=== PATIENT | female | born 1945 | race Caucasian/White ===

== ENCOUNTER 2021-07-08 12:23 | Inpatient (IN) | payer MEDICARE, OTHER, MEDICAID ==
--- NOTE | 2021-07-08 12:41 | EDM.PDOC ---
ED HPI GENERAL MEDICAL PROBLEM - General Chief Complaint: Abdominal Pain Stated Complaint: POSSIBLE GI BLED Time Seen by Provider: 07/08/21 12:23 Source of Information: Reports: Patient, EMS, Care Home Records History Limitations: Reports: Altered Mental Status, Other ( No updated daily report) - History of Present Illness INITIAL COMMENTS - FREE TEXT/NARRATIVE: Mackenzie, 75-year-old female, presents by [place] ambulance from the nursing facility with report provided by ambulance only as there was no provider contact made. This morning while changing her ostomy bag they noted tarry black stool suspicious for GI bleed. Although there is no documentation in the paperwork sent from the nursing facility nor contact from the [facility] provider transportation was authorized as well as a bed hold denial obtained from her son Rg who is the power of ip attorney. She was hospitalized at [facility] in [place] in May for what appears to be urosepsis issues and was transferred to [facility] in [place] on 12 June. She has been seen and had lab work done since then by [facility] provider Fatmata Fitzgerald through the clinic system. She presents today somewhat lethargic able to answer yes and no to questions but has a very weak voice and very limited mobility. She states she has some abdominal discomfort which is lower abdomen pelvis and otherwise is somewhat vague to any other complaint. Majority of history is obtained but is very limited from the nursing record. She is never been seen in our system and all pertinent information is obtained through [facility] chart and or the limitations of the alf record. Onset: Today, Unknown/Unsure Duration: Hour(s):, Constant Location: Reports: Abdomen Quality: Reports: Pressure, Sharp Severity: Severe Improves with: Reports: None Context: Reports: Other Associated Symptoms: Reports: No Other Symptoms Abdomen Pain Score (Numeric/FACES): 4 - Related Data Allergies Allergy/AdvReac Type Severity Reaction Status Date / Time bupivacaine [From Marcaine] Allergy Other Verified 07/08/21 13:09 celecoxib [From Celebrex] Allergy Other Verified 07/08/21 13:01 ciprofloxacin Allergy Other Verified 07/08/21 13:01 clindamycin Allergy Other Verified 07/08/21 13:02 codeine Allergy Other Verified 07/08/21 13:07 dicyclomine Allergy Other Verified 07/08/21 13:08 doxycycline Allergy Other Verified 07/08/21 13:08 fentanyl Allergy Other Verified 07/08/21 13:09 hydrocodone Allergy Other Verified 07/08/21 13:09 hydromorphone [From Dilaudid] Allergy Other Verified 07/08/21 13:08 meperidine [From Demerol] Allergy Other Verified 07/08/21 13:07 morphine Allergy Other Verified 07/08/21 13:10 nitrofurantoin Allergy Other Verified 07/08/21 13:09 [From Macrobid] NSAIDS (Non-Steroidal Allergy Other Verified 07/08/21 13:10 Anti-Inflamma prednisone Allergy Other Verified 07/08/21 13:10 propoxyphene Allergy Other Verified 07/08/21 13:11 salicylates Allergy Other Verified 07/08/21 13:11 Sulfa (Sulfonamide Allergy Other Verified 07/08/21 13:11 Antibiotics) Home Meds: Home Meds Acetaminophen 650 mg PO Q12H PRN 07/08/21 [History] Apixaban [Eliquis] 5 mg PO BID 07/08/21 [History] Aspirin 81 mg PO Q48H 07/08/21 [History] Capsaicin 1 applic TOP ASDIRECTED PRN 07/08/21 [History] Cyanocobalamin (Vitamin B-12) [B-12] 1,000 mg PO DAILY 07/08/21 [History] Levothyroxine [Synthroid] 50 mcg PO ACBREAKFAST 07/08/21 [History] Lidocaine 5% [Lidoderm 5%] 1 patch TOP DAILY 07/08/21 [History] Menthol/Zinc Oxide [Calmoseptine] 1 applic TOP ASDIRECTED PRN 07/08/21 [History] OLANZapine [Olanzapine] 5 mg PO BEDTIME 07/08/21 [History] hydrALAZINE [Apresoline] 10 mg PO Q8H PRN 07/08/21 [History] levETIRAcetam [Keppra] 500 mg PO BID 07/08/21 [History] Past Medical History HEENT History: Reports: Allergic Rhinitis Cardiovascular History: Reports: Blood Clots/VTE/DVT, Heart Failure, Hypertension Gastrointestinal History: Reports: Other (See Below) ( chronic abdominal pain) Genitourinary History: Reports: Other (See Below) ( cystitis) Musculoskeletal History: Reports: Other (See Below) ( chronic pain syndrome, chronic cervicalgia) Neurological History: Reports: CVA, Seizure ( epilepsy), Speech Problems, Other (See Below) (Chronic pain syndrome) Psychiatric History: Reports: Anxiety Endocrine/Metabolic History: Reports: Hypothyroidism Hematologic History: Reports: Anemia - Past Surgical History GI Surgical History: Reports: Colonoscopy, Small Bowel, Other (See Below) (ostomy) Social & Family History - Family History Family Medical History: No Pertinent Family History ED ROS GENERAL - Review of Systems Review Of Systems: Unable To Obtain (any verbal context with limited notations from alf record and some obtained from review of the [place] [id number] chart link.) Reason Not Obtained: altered sensorium and no up to date records available ED EXAM, GENERAL - Physical Exam Exam: See Below Free Text/Narrative:: Alert to my presence but otherwise lethargic and less being stimulated. She is somewhat pale in color. She has cool extremities with very faint pulses. HEENT is negative to discharge or deformity. PERRLA no icterus no injection. Neck is soft supple with no lymphadenopathy, I do not appreciate bruit. Thorax is raspy but very poor inspiratory effort. I do not hear any wheezes. Cardiac is S1-S2 tachycardic with a grade 1 systolic murmur best heard at the base nonradiating. Abdomen is distended and tender predominantly in the lower quadrants over the pelvic region. She has a very prominent suprapubic bone with tenderness to palpation over the suprapubic bone as well. There is a laceration that is been Steri-Stripped and op sited to the left hand wrist with no evidence of irritation. She has scattered bruises to the extremities. Lower extremities are free of any injury they are cool to the touch with faint pulses with no edema. Throughout the stay she has conversed but in such a weak voice it is very difficult to hear her. An attempt was made for her to write but she is unable to put enough pressure to get more than a letter faintly on the board. In discussion with her seeing she is full status per POLST agreement at the time she was discharged and in the hospital and [facility] in [place] she does acknowledge that she wants everything done at this time. Later conversation with family members was given and CODE STATUS is changed per power of ip attorney with nursing witness to the phone conversation. #1 Interpretation EKG Date: 07/08/21 Time: 13:00 Rhythm: NSR Rate (Beats/Min): 103 [place]: Normal P-Wave: Present QRS: LBBB ST-T: Normal QT: Normal Comparison: NA - No Prior EKG Course - Vital Signs Last Recorded V/S: Last Vital Signs Temp 96.6 F L 07/08/21 13:16 Pulse 104 H 07/08/21 13:16 Resp 28 H 07/08/21 13:16 BP 128/77 07/08/21 13:16 Pulse Ox 99 07/08/21 13:16 - Orders/Labs/Meds Orders: Active Orders 24 hr Category Date Time Status Patient Status [ADT] Routine ADT 07/08/21 17:09 Active Insert Dawson Catheter [Insert Urinary Catheter] [OM.PC] Care 07/08/21 13:30 Ordered Q24H Peripheral IV Care [RC] . DIRECTED Care 07/08/21 12:43 Active Urinary Catheter Assessment [RC] ASDIRECTED Care 07/08/21 13:22 Active CORONAVIRUS COVID-19 RAPID [MOLEC] Stat Lab 07/08/21 17:00 Ordered CULTURE BLOOD [BC] Stat Lab 07/08/21 12:43 Ordered CULTURE BLOOD [BC] Stat Lab 07/08/21 14:00 Received CULTURE URINE [RM] Stat Lab 07/08/21 13:30 Received GLUCOSE,POC [POC] Stat Lab 07/08/21 15:58 Ordered LACTIC ACID [CHEM] Routine Lab 07/08/21 16:30 Ordered Sodium Chloride 0.9% [Normal Saline] 50 ml Med 07/08/21 14:15 Active IV ASDIRECTED Sodium Chloride 0.9% [Saline Flush] Med 07/08/21 12:42 Active 10 ml FLUSH Q8HR PRN Blood Culture x2 Reflex Set [OM.PC] Stat Oth 07/08/21 12:41 Ordered Peripheral IV Insertion Adult [OM.PC] Stat Oth 07/08/21 12:42 Ordered Code Status [Resuscitation Status] Stat Resus Stat 07/08/21 16:29 Ordered EKG 12 Lead [EK] Stat Ther 07/08/21 12:42 Ordered Medication Orders Sodium Chloride (Normal Saline) 50 mls @ 125 mls/hr IV ASDIRECTED TIFFANI Last Admin: 07/08/21 14:16 Dose: 125 mls/hr Documented by: OC Sodium Chloride (Sodium Chloride 0.9% 10 Ml Syringe) 10 ml FLUSH Q8HR PRN PRN Reason: keep vein open Labs: Laboratory Tests 07/08/21 07/08/21 07/08/21 Range/Units 12:55 12:55 12:55 WBC 28.75 H (5.00-10.00) 10^3/uL RBC 3.35 L (3.80-5.50) 10^6/uL Hgb 10.7 L (12.0-16.0) g/dL Hct 33.4 L (37.0-47.0) % MCV 99.7 H (82.0-92.0) fL MCH 31.9 H (27.0-31.0) pg MCHC 32.0 (32.0-36.0) g/dL RDW 13.7 (11.5-14.5) % Plt Count 373 (150-400) 10^3/uL MPV 10.8 H (7.4-10.4) fL Immature Gran % (Auto) 1.3 (0.0-5.0) % Neut % (Auto) 90.1 H (50.0-70.0) % Lymph % (Auto) 4.2 L (20.0-40.0) % Wake % (Auto) 4.4 (2.0-8.0) % Eos % (Auto) 0.0 L (1.0-3.0) % Baso % (Auto) 0.0 (0.0-1.0) % Neut # (Auto) 25.90 H (2.50-7.00) 10^3/uL Lymph # (Auto) 1.21 (1.00-4.00) 10^3/uL Wake # (Auto) 1.26 H (0.10-0.80) 10^3/uL Eos # (Auto) 0.00 L (0.10-0.30) 10^3/uL Baso # (Auto) 0.01 (0.00-0.10) 10^3/uL Immature Gran # (Auto) 0.37 (0.00-0.50) 10^3/uL Macrocytosis 1+ slight Sodium 127 L (136-145) mmol/L Potassium 8.2 H* (3.5-5.1) mmol/L Chloride 97 L (98-107) mmol/L Carbon Dioxide 13.9 L (21.0-32.0) mmol/L Anion Gap 24.3 H (5-15) mmol/L BUN 165 H* (7-18) mg/dL Creatinine 3.81 H (0.51-1.17) mg/dL Est Cr Clr Drug Dosing 10.68 mL/min Estimated GFR (MDRD) 11 mL/min Glucose 244 H (70-140) mg/dL POC Glucose (70-140) mg/dL Lactic Acid 4.9 H (0.4-2.0) mmol/L Calcium 10.3 (8.7-10.3) mg/dL Total Bilirubin 0.3 (0.2-1.0) mg/dL AST 13 L (15-37) U/L ALT 13 L (14-63) U/L Alkaline Phosphatase 93 (46-116) U/L Troponin I High Sens 11.200 (0-51.000) pg/mL Total Protein 8.3 H (6.4-8.2) g/dL Albumin 2.26 L (3.40-5.00) g/dL Amylase 70 (25-125) U/L Lipase 499 H (73-393) U/L Specimen Type Urine Color (YELLOW) Urine Appearance (CLEAR) Urine pH (5.0-9.0) Ur Specific [place] (1.005-1.030) Urine Protein (NEGATIVE) mg/dL Urine Glucose (UA) (NEGATIVE) mg/dL Urine Ketones (NEGATIVE) mg/dL Urine Occult Blood (NEGATIVE) Urine Nitrite (NEGATIVE) Urine Bilirubin (NEGATIVE) Urine Urobilinogen (0.2-1.0) E.U./dL Ur Leukocyte Esterase (NEGATIVE) Urine RBC (0-5) /HPF Urine WBC (0-5) /HPF Ur Epithelial Cells /LPF Urine Bacteria (NONE TO FEW) /HPF SARS CoV-2 RNA Rapid JASMYNE (NEGATIVE) 07/08/21 07/08/21 07/08/21 Range/Units 13:30 16:00 16:17 WBC (5.00-10.00) 10^3/uL RBC (3.80-5.50) 10^6/uL Hgb (12.0-16.0) g/dL Hct (37.0-47.0) % MCV (82.0-92.0) fL MCH (27.0-31.0) pg MCHC (32.0-36.0) g/dL RDW (11.5-14.5) % Plt Count (150-400) 10^3/uL MPV (7.4-10.4) fL Immature Gran % (Auto) (0.0-5.0) % Neut % (Auto) (50.0-70.0) % Lymph % (Auto) (20.0-40.0) % Wake % (Auto) (2.0-8.0) % Eos % (Auto) (1.0-3.0) % Baso % (Auto) (0.0-1.0) % Neut # (Auto) (2.50-7.00) 10^3/uL Lymph # (Auto) (1.00-4.00) 10^3/uL Wake # (Auto) (0.10-0.80) 10^3/uL Eos # (Auto) (0.10-0.30) 10^3/uL Baso # (Auto) (0.00-0.10) 10^3/uL Immature Gran # (Auto) (0.00-0.50) 10^3/uL Macrocytosis Sodium (136-145) mmol/L Potassium (3.5-5.1) mmol/L Chloride (98-107) mmol/L Carbon Dioxide (21.0-32.0) mmol/L Anion Gap (5-15) mmol/L BUN (7-18) mg/dL Creatinine (0.51-1.17) mg/dL Est Cr Clr Drug Dosing mL/min Estimated GFR (MDRD) mL/min Glucose (70-140) mg/dL POC Glucose 219 H (70-140) mg/dL Lactic Acid (0.4-2.0) mmol/L Calcium (8.7-10.3) mg/dL Total Bilirubin (0.2-1.0) mg/dL AST (15-37) U/L ALT (14-63) U/L Alkaline Phosphatase (46-116) U/L Troponin I High Sens (0-51.000) pg/mL Total Protein (6.4-8.2) g/dL Albumin (3.40-5.00) g/dL Amylase (25-125) U/L Lipase (73-393) U/L Specimen Type Urincath Urine Color Brown H (YELLOW) Urine Appearance Cloudy H (CLEAR) Urine pH 5.0 (5.0-9.0) Ur Specific [place] >= 1.030 (1.005-1.030) Urine Protein 100 H (NEGATIVE) mg/dL Urine Glucose (UA) Negative (NEGATIVE) mg/dL Urine Ketones 15 H (NEGATIVE) mg/dL Urine Occult Blood Large H (NEGATIVE) Urine Nitrite Negative (NEGATIVE) Urine Bilirubin Negative (NEGATIVE) Urine Urobilinogen 0.2 (0.2-1.0) E.U./dL Ur Leukocyte Esterase Large H (NEGATIVE) Urine RBC Packed (0-5) /HPF Urine WBC Packed (0-5) /HPF Ur Epithelial Cells Moderate H /LPF Urine Bacteria Many H (NONE TO FEW) /HPF SARS CoV-2 RNA Rapid JASMYNE Negative (NEGATIVE) Meds: Medications Generic Name Dose Route Start Last Admin Trade Name Edis PRN Reason Stop Dose Admin Sodium Chloride 50 mls @ 125 mls/hr 07/08/21 14:15 07/08/21 14:16 Normal Saline IV 125 mls/hr ASDIRECTED TIFFANI Administration Sodium Chloride 10 ml 07/08/21 12:42 Sodium Chloride 0.9% 10 Ml Syringe FLUSH Q8HR PRN keep vein open Discontinued Medications Generic Name Dose Route Start Last Admin Trade Name Edis PRN Reason Stop Dose Admin Dextrose/Water 50 ml 07/08/21 15:00 07/08/21 15:20 50% Dextrose In Water 50 Ml Syringe IVPUSH 07/08/21 15:01 50 ml ONETIME ONE Administration Piperacillin Sod/Tazobactam 100 mls @ 200 mls/hr 07/08/21 13:45 07/08/21 14:07 Sod 3.375 gm/ Sodium Chloride IV 07/08/21 14:14 Not Given ONETIME ONE Piperacillin Sod/Tazobactam 100 mls @ 200 mls/hr 07/08/21 14:00 07/08/21 14:13 Sod 3.375 gm/ Sodium Chloride IV 07/08/21 14:29 200 mls/hr ONETIME ONE Administration Sodium Chloride Confirm 07/08/21 14:08 07/08/21 14:14 Normal Saline Administered 07/08/21 14:09 Not Given Dose 50 mls @ as directed .ROUTE .STK-MED ONE Sodium Chloride Confirm 07/08/21 14:36 07/08/21 15:43 Normal Saline Administered 07/08/21 14:37 Not Given Dose 1,000 mls @ as directed .ROUTE .STK-MED ONE Sodium Chloride Confirm 07/08/21 14:56 07/08/21 15:44 Normal Saline Administered 07/08/21 14:57 Not Given Dose 1,000 mls @ as directed .ROUTE .STK-MED ONE Sodium Chloride 1,000 mls @ 999 mls/hr 07/08/21 15:02 07/08/21 15:46 Normal Saline IV 07/08/21 16:02 200 mls/hr .BOLUS ONE Administration Sodium Chloride 1,000 mls @ 999 mls/hr 07/08/21 15:41 07/08/21 15:46 Normal Saline IV 07/08/21 16:41 200 mls/hr .BOLUS ONE Administration Insulin Human Regular 15 unit 07/08/21 15:00 07/08/21 15:36 Insulin Regular, Human 100 Units/Ml 10 Ml Vial IV 07/08/21 15:01 15 unit ONETIME ONE Administration Lidocaine/Prilocaine Confirm 07/08/21 14:33 07/08/21 15:42 Lidocaine/Prilocaine 2.5-2.5% Crm 5 Gm Tube Administered 07/08/21 14:34 Not Given Dose 5 gm .ROUTE .STK-MED ONE Lidocaine/Prilocaine 5 gm 07/08/21 15:41 07/08/21 14:50 Lidocaine/Prilocaine 2.5-2.5% Crm 5 Gm Tube TOP 07/08/21 15:42 5 gm ONETIME ONE Administration - Re-Assessments/Exams Free Text/Narrative Re-Assessment/Exam: 07/08/21 17:12 Lengthy discussion with family at first that they would still want everything done including full resuscitation status. After not able to find any facilities with bed space the family returned call stating they wished for CODE STATUS to be changed to DNR and treating the appropriate reversible conditions only. Discussion at that time regarding a continuation of IV fluid IV antibiotic for the urosepsis. Contact with Acacia Yap agreeing to the admission. Departure - Departure Time of Disposition: 16:28 Disposition: Admitted As Inpatient 64 Condition: Serious Clinical Impression: Acute hyperkalemia, Dehydration Sepsis Qualifiers: Sepsis type: sepsis due to unspecified organism Sepsis acute organ dysfunction status: with acute organ dysfunction Severe sepsis acute organ dysfunction type: acute renal failure Acute renal failure type: unspecified Severe sepsis shock status: unspecified Qualified Code(s): A41.9 - Sepsis, unspecified organism Renal failure (ARF), acute on chronic Qualifiers: Acute renal failure type: unspecified Chronic kidney disease stage: stage 4 (severe) Qualified Code(s): N17.9 - Acute kidney failure, unspecified - Discharge Information *PRESCRIPTION DRUG MONITORING PROGRAM REVIEWED*: Not Applicable *COPY OF PRESCRIPTION DRUG MONITORING REPORT IN PATIENT JUANJOSE: Not Applicable Referrals: Isa Yo MD [Primary Care Provider] - Acacia Traylor PA-C [Physician] - Forms: ED Department Discharge Additional Instructions: [facility] unavailable to accept. [facility] unable to accept. Family changes CODE STATUS to DNR with treating measures with a focus on comfort POLST form is updated. Contact with [place] provider Acacia Yap for admission. Sepsis Event Note (ED) - Focused Exam Vital Signs: Vital Signs Temp Pulse Resp BP Pulse Ox 07/08/21 13:16 96.6 F L 104 H 28 H 128/77 99 07/08/21 12:51 97 F 104 H 27 H 115/81 98 07/08/21 12:30 108 H 27 H 116/71 98 - Problem List & Annotations (1) Sepsis SNOMED Code(s): 03898951 Code(s): A41.9 - SEPSIS, UNSPECIFIED ORGANISM Status: Acute Priority: High Current Visit: Yes Qualifiers: Sepsis type: sepsis due to unspecified organism Sepsis acute organ dysfunction status: with acute organ dysfunction Severe sepsis acute organ dysfunction type: acute renal failure Acute renal failure type: unspecified Severe sepsis shock status: unspecified Qualified Code(s): A41.9 - Sepsis, unspecified organism; R65.20 - Severe sepsis without septic shock; N17.9 - Acute kidney failure, unspecified (2) Renal failure (ARF), acute on chronic SNOMED Code(s): 666199274 Code(s): N17.9 - ACUTE KIDNEY FAILURE, UNSPECIFIED; N18.9 - CHRONIC KIDNEY DISEASE, UNSPECIFIED Status: Acute Priority: High Current Visit: Yes Qualifiers: Acute renal failure type: unspecified Chronic kidney disease stage: stage 4 (severe) Qualified Code(s): N17.9 - Acute kidney failure, unspecified; N18.4 - Chronic kidney disease, stage 4 (severe) (3) Acute hyperkalemia SNOMED Code(s): 7871494 Code(s): E87.5 - HYPERKALEMIA Status: Acute Priority: High Current Visit: Yes (4) Dehydration SNOMED Code(s): 99413043 Code(s): E86.0 - DEHYDRATION Status: Acute Priority: High Current Visit: Yes (5) COVID-19 ruled out by laboratory testing SNOMED Code(s): 985090973379369031, 433363782559859738 Code(s): Z20.822 - CONTACT WITH AND (SUSPECTED) EXPOSURE TO COVID-19 Status: Acute Current Visit: Yes - Problem List Review Problem List Initiated/Reviewed/Updated: Yes - My Orders Last 24 Hours: My Active Orders 07/08/21 12:41 Blood Culture x2 Reflex Set [OM.PC] Stat 07/08/21 12:42 Sodium Chloride 0.9% [Saline Flush] 10 ml FLUSH Q8HR PRN Peripheral IV Insertion Adult [OM.PC] Stat EKG 12 Lead [EK] Stat 07/08/21 12:43 Peripheral IV Care [RC] . DIRECTED CULTURE BLOOD [BC] Stat 07/08/21 13:22 Urinary Catheter Assessment [RC] ASDIRECTED 07/08/21 13:30 Insert Dawson Catheter [Insert Urinary Catheter] [OM.PC] Q24H CULTURE URINE [RM] Stat 07/08/21 14:00 CULTURE BLOOD [BC] Stat 07/08/21 14:15 Sodium Chloride 0.9% [Normal Saline] 50 ml IV ASDIRECTED 07/08/21 15:58 GLUCOSE,POC [POC] Stat 07/08/21 16:29 Code Status [Resuscitation Status] Stat 07/08/21 16:30 LACTIC ACID [CHEM] Routine 07/08/21 17:00 CORONAVIRUS COVID-19 RAPID [MOLEC] Stat 07/08/21 17:09 Patient Status [ADT] Routine - Assessment/Plan Last 24 Hours: My Active Orders 07/08/21 12:41 Blood Culture x2 Reflex Set [OM.PC] Stat 07/08/21 12:42 Sodium Chloride 0.9% [Saline Flush] 10 ml FLUSH Q8HR PRN Peripheral IV Insertion Adult [OM.PC] Stat EKG 12 Lead [EK] Stat 07/08/21 12:43 Peripheral IV Care [RC] . DIRECTED CULTURE BLOOD [BC] Stat 07/08/21 13:22 Urinary Catheter Assessment [RC] ASDIRECTED 07/08/21 13:30 Insert Dawson Catheter [Insert Urinary Catheter] [OM.PC] Q24H CULTURE URINE [RM] Stat 07/08/21 14:00 CULTURE BLOOD [BC] Stat 07/08/21 14:15 Sodium Chloride 0.9% [Normal Saline] 50 ml IV ASDIRECTED 07/08/21 15:58 GLUCOSE,POC [POC] Stat 07/08/21 16:29 Code Status [Resuscitation Status] Stat 07/08/21 16:30 LACTIC ACID [CHEM] Routine 07/08/21 17:00 CORONAVIRUS COVID-19 RAPID [MOLEC] Stat 07/08/21 17:09 Patient Status [ADT] Routine Plan: [facility] unavailable to accept. [facility] unable to accept. Family changes CODE STATUS to DNR with treating measures with a focus on comfort POLST form is updated. Contact with [place] provider Acacia Yap for admission.
[2021-07-08] MEDS ORDERED: Piperacillin/Tazobactam 3.375 GM in Sodium Chloride 0.9% 100 ML IV ONE ×2 (13:45→14:00)
--- NOTE | 2021-07-08 13:46 | CR ---
[id number] RAD/RAD Chest PA or AP 1V EXAM: RAD Chest PA or AP 1V INDICATION: GI BLEED, ABDOMINAL PAIN. COMPARISON: CT from today. DISCUSSION/IMPRESSION: Mild cardiomegaly and central vascular congestion. Linear opacity in the left lung base with blunting of the left costophrenic sulcus. Finding This correlates with scarring and a small effusion seen in the lung base on CT from today. Findings are superimposed on changes of parenchymal emphysema. Hudson Diggs MD 07/08/21 [id number] Thank you for allowing us to participate in the care of your patient.
--- NOTE | 2021-07-08 13:48 | CT ---
[id number] CT/CT Abdomen Pelvis WO IV EXAM: ABDOMEN AND PELVIS CT WITHOUT CONTRAST INDICATION: GI BLEED, ABDOMINAL PAIN. COMPARISON: None. DISCUSSION: Small left pleural effusion. Emphysematous changes in the imaged lung bases. Scattered plaque in the aorta and its major branches including the coronary arteries. Cholecystectomy. Mild to moderate bilateral urinary collecting system dilation likely related to urinary retention with moderate distention of the urinary bladder. Subcentimeter hemorrhagic cyst right kidney. Sequela of prior colectomy with left lower quadrant ostomy. Acute subacute appearing T11 compression fracture. Partially characterized kyphoplasty at the T9 level. Grade 1 degenerative L5-S1 spondylolisthesis. Degenerative changes in both hips. Unenhanced images of the liver, spleen, pancreas, adrenal glands and small bowel are unremarkable. No adenopathy, free air free fluid. IMPRESSION: 1. Moderate distention of the urinary bladder with associated mild to moderate bilateral urinary collecting system dilation. 2. Small left pleural effusion. Don Solis MD 07/08/21 [id number] Thank you for allowing us to participate in the care of your patient.
[2021-07-08] MEDS ORDERED: Sodium Chloride 0.9% 50 ML ONE (14:08)
[2021-07-08 14:13] LABS: ANION GAP 24.3 mmol/L (5-15)
[2021-07-08] MEDS ORDERED: Sodium Chloride 0.9% 50 ML IV SCH (14:15)
[2021-07-08] MEDS ORDERED: Lidocaine/Prilocaine 2.5-2.5% Crm 5 GM Tube ONE (14:33)
[2021-07-08] MEDS ORDERED: Sodium Chloride 0.9% 1,000 ML ONE ×2 (14:36→14:56)
[2021-07-08] MEDS ORDERED: Insulin Regular, Human 100 Units/ML 10 ML Vial IV ONE (15:00)
[2021-07-08] MEDS ORDERED: 50% Dextrose in Water 50 ML Syringe IVPUSH ONE (15:00)
[2021-07-08] MEDS: Sodium Chloride 0.9% 1,000 ML IV ONE ×3 (15:14→15:46)
[2021-07-08] MEDS ORDERED: Sodium Chloride 0.9% 1,000 ML IV ONE (15:41)
[2021-07-08] MEDS ORDERED: Lidocaine/Prilocaine 2.5-2.5% Crm 5 GM Tube TOP ONE (15:41)
[2021-07-08] MEDS: Sodium Chloride 0.9% 1,000 ML IV SCH (18:00)
[2021-07-08] MEDS ORDERED: hydrALAZINE 10 MG Tab PO PRN (20:55)
[2021-07-08] MEDS ORDERED: OLANZapine 5 MG Tab PO SCH (21:00)
[2021-07-08] MEDS ORDERED: Piperacillin/Tazobactam/Dext 3.375 GM in Premix Bag 1 BAG IV SCH (21:00)
[2021-07-08] MEDS ORDERED: Aspirin 81 MG Tab.EC PO SCH (21:00)
--- NOTE | 2021-07-08 21:23 | PCM.SN.2 ---
- Free Text/Narrative Note: Discussed code status with family. Son and daughter in law have requested DNR/DNI/comfort cares. They would like to have IV fluids/antibiotics/pain management provided. At this time request no further lab work to be obtained. If patient status should improve they may reconsider their decision. Informed they will be kept updated. Time Documentation
[2021-07-08] MEDS: Apixaban 5 MG Tab PO SCH (22:04)
[2021-07-08] MEDS: Piperacillin/Tazobactam 2.25 GM in Sodium Chloride 0.9% 50 ML IV SCH (22:06)
[2021-07-08] MEDS ORDERED: Acetaminophen 325 MG Tab PO PRN (22:06)
[2021-07-08] MEDS: levETIRAcetam 500 MG Tab PO SCH (22:06)
[2021-07-09] MEDS: Piperacillin/Tazobactam 2.25 GM in Sodium Chloride 0.9% 50 ML IV SCH ×2 (02:35→08:55)
[2021-07-09] MEDS: Sodium Chloride 0.9% 1,000 ML IV SCH (03:09)
[2021-07-09] MEDS: Sodium Chloride 0.9% 10 ML Syringe FLUSH PRN ×2 (05:58→23:53)
[2021-07-09] MEDS: Morphine 2 MG/ML SYRINGE IVPUSH PRN ×6 (05:58→23:51)
[2021-07-09] MEDS ORDERED: Levothyroxine 50 MCG Tab PO SCH (07:30)
[2021-07-09] MEDS: Lidocaine 5% 700 MG Patch TOP SCH (08:57)
[2021-07-09] MEDS: Apixaban 5 MG Tab PO SCH (09:01)
[2021-07-09] MEDS: levETIRAcetam 500 MG Tab PO SCH (09:01)
--- NOTE | 2021-07-09 11:38 | PCM.PN ---
- General Info Date of Service: 07/09/21 Functional Status: Reports: Urinating (low urinary output). Denies: Pain Controlled, Tolerating Diet, Ambulating - Review of Systems General: Reports: Weakness, Fatigue HEENT: Reports: No Symptoms Pulmonary: Reports: No Symptoms Cardiovascular: Reports: No Symptoms Gastrointestinal: Reports: No Symptoms Genitourinary: Reports: No Symptoms Musculoskeletal: Reports: Back Pain Skin: Reports: Pallor Neurological: Reports: Weakness - Patient Data Vitals - Most Recent: Last Vital Signs Temp 96.5 F L 07/09/21 06:33 Pulse 106 H 07/09/21 06:33 Resp 18 07/09/21 06:33 BP 122/59 L 07/09/21 06:33 Pulse Ox 97 07/09/21 06:33 Weight - Most Recent: 134 lb 8 oz I&O - Last 24 Hours: Intake & Output 07/08/21 07/09/21 07/09/21 22:59 06:59 14:59 Intake Total 3100 1301 Output Total 1100 150 Balance 2000 1151 Lab Results Last 24 Hours: Laboratory Results - last 24 hr 07/08/21 07/08/21 07/08/21 Range/Units 12:55 12:55 12:55 WBC 28.75 H (5.00-10.00) 10^3/uL RBC 3.35 L (3.80-5.50) 10^6/uL Hgb 10.7 L (12.0-16.0) g/dL Hct 33.4 L (37.0-47.0) % MCV 99.7 H (82.0-92.0) fL MCH 31.9 H (27.0-31.0) pg MCHC 32.0 (32.0-36.0) g/dL RDW 13.7 (11.5-14.5) % Plt Count 373 (150-400) 10^3/uL MPV 10.8 H (7.4-10.4) fL Immature Gran % (Auto) 1.3 (0.0-5.0) % Neut % (Auto) 90.1 H (50.0-70.0) % Lymph % (Auto) 4.2 L (20.0-40.0) % Parmer % (Auto) 4.4 (2.0-8.0) % Eos % (Auto) 0.0 L (1.0-3.0) % Baso % (Auto) 0.0 (0.0-1.0) % Neut # (Auto) 25.90 H (2.50-7.00) 10^3/uL Lymph # (Auto) 1.21 (1.00-4.00) 10^3/uL Parmer # (Auto) 1.26 H (0.10-0.80) 10^3/uL Eos # (Auto) 0.00 L (0.10-0.30) 10^3/uL Baso # (Auto) 0.01 (0.00-0.10) 10^3/uL Immature Gran # (Auto) 0.37 (0.00-0.50) 10^3/uL Macrocytosis 1+ slight Sodium 127 L (136-145) mmol/L Potassium 8.2 H* (3.5-5.1) mmol/L Chloride 97 L (98-107) mmol/L Carbon Dioxide 13.9 L (21.0-32.0) mmol/L Anion Gap 24.3 H (5-15) mmol/L BUN 165 H* (7-18) mg/dL Creatinine 3.81 H (0.51-1.17) mg/dL Est Cr Clr Drug Dosing 10.68 mL/min Estimated GFR (MDRD) 11 mL/min Glucose 244 H (70-140) mg/dL POC Glucose (70-140) mg/dL Lactic Acid 4.9 H (0.4-2.0) mmol/L Calcium 10.3 (8.7-10.3) mg/dL Total Bilirubin 0.3 (0.2-1.0) mg/dL AST 13 L (15-37) U/L ALT 13 L (14-63) U/L Alkaline Phosphatase 93 (46-116) U/L Troponin I High Sens 11.200 (0-51.000) pg/mL Total Protein 8.3 H (6.4-8.2) g/dL Albumin 2.26 L (3.40-5.00) g/dL Amylase 70 (25-125) U/L Lipase 499 H (73-393) U/L Specimen Type Urine Color (YELLOW) Urine Appearance (CLEAR) Urine pH (5.0-9.0) Ur Specific [place] (1.005-1.030) Urine Protein (NEGATIVE) mg/dL Urine Glucose (UA) (NEGATIVE) mg/dL Urine Ketones (NEGATIVE) mg/dL Urine Occult Blood (NEGATIVE) Urine Nitrite (NEGATIVE) Urine Bilirubin (NEGATIVE) Urine Urobilinogen (0.2-1.0) E.U./dL Ur Leukocyte Esterase (NEGATIVE) Urine RBC (0-5) /HPF Urine WBC (0-5) /HPF Ur Epithelial Cells /LPF Urine Bacteria (NONE TO FEW) /HPF SARS CoV-2 RNA Rapid JASMYNE (NEGATIVE) 07/08/21 07/08/21 07/08/21 Range/Units 13:30 16:00 16:17 WBC (5.00-10.00) 10^3/uL RBC (3.80-5.50) 10^6/uL Hgb (12.0-16.0) g/dL Hct (37.0-47.0) % MCV (82.0-92.0) fL MCH (27.0-31.0) pg MCHC (32.0-36.0) g/dL RDW (11.5-14.5) % Plt Count (150-400) 10^3/uL MPV (7.4-10.4) fL Immature Gran % (Auto) (0.0-5.0) % Neut % (Auto) (50.0-70.0) % Lymph % (Auto) (20.0-40.0) % Parmer % (Auto) (2.0-8.0) % Eos % (Auto) (1.0-3.0) % Baso % (Auto) (0.0-1.0) % Neut # (Auto) (2.50-7.00) 10^3/uL Lymph # (Auto) (1.00-4.00) 10^3/uL Parmer # (Auto) (0.10-0.80) 10^3/uL Eos # (Auto) (0.10-0.30) 10^3/uL Baso # (Auto) (0.00-0.10) 10^3/uL Immature Gran # (Auto) (0.00-0.50) 10^3/uL Macrocytosis Sodium (136-145) mmol/L Potassium (3.5-5.1) mmol/L Chloride (98-107) mmol/L Carbon Dioxide (21.0-32.0) mmol/L Anion Gap (5-15) mmol/L BUN (7-18) mg/dL Creatinine (0.51-1.17) mg/dL Est Cr Clr Drug Dosing mL/min Estimated GFR (MDRD) mL/min Glucose (70-140) mg/dL POC Glucose 219 H (70-140) mg/dL Lactic Acid (0.4-2.0) mmol/L Calcium (8.7-10.3) mg/dL Total Bilirubin (0.2-1.0) mg/dL AST (15-37) U/L ALT (14-63) U/L Alkaline Phosphatase (46-116) U/L Troponin I High Sens (0-51.000) pg/mL Total Protein (6.4-8.2) g/dL Albumin (3.40-5.00) g/dL Amylase (25-125) U/L Lipase (73-393) U/L Specimen Type Urincath Urine Color Brown H (YELLOW) Urine Appearance Cloudy H (CLEAR) Urine pH 5.0 (5.0-9.0) Ur Specific [place] >= 1.030 (1.005-1.030) Urine Protein 100 H (NEGATIVE) mg/dL Urine Glucose (UA) Negative (NEGATIVE) mg/dL Urine Ketones 15 H (NEGATIVE) mg/dL Urine Occult Blood Large H (NEGATIVE) Urine Nitrite Negative (NEGATIVE) Urine Bilirubin Negative (NEGATIVE) Urine Urobilinogen 0.2 (0.2-1.0) E.U./dL Ur Leukocyte Esterase Large H (NEGATIVE) Urine RBC Packed (0-5) /HPF Urine WBC Packed (0-5) /HPF Ur Epithelial Cells Moderate H /LPF Urine Bacteria Many H (NONE TO FEW) /HPF SARS CoV-2 RNA Rapid JASMYNE Negative (NEGATIVE) 07/08/21 07/08/21 Range/Units 17:50 19:40 WBC (5.00-10.00) 10^3/uL RBC (3.80-5.50) 10^6/uL Hgb (12.0-16.0) g/dL Hct (37.0-47.0) % MCV (82.0-92.0) fL MCH (27.0-31.0) pg MCHC (32.0-36.0) g/dL RDW (11.5-14.5) % Plt Count (150-400) 10^3/uL MPV (7.4-10.4) fL Immature Gran % (Auto) (0.0-5.0) % Neut % (Auto) (50.0-70.0) % Lymph % (Auto) (20.0-40.0) % Parmer % (Auto) (2.0-8.0) % Eos % (Auto) (1.0-3.0) % Baso % (Auto) (0.0-1.0) % Neut # (Auto) (2.50-7.00) 10^3/uL Lymph # (Auto) (1.00-4.00) 10^3/uL Parmer # (Auto) (0.10-0.80) 10^3/uL Eos # (Auto) (0.10-0.30) 10^3/uL Baso # (Auto) (0.00-0.10) 10^3/uL Immature Gran # (Auto) (0.00-0.50) 10^3/uL Macrocytosis Sodium (136-145) mmol/L Potassium 6.2 H D (3.5-5.1) mmol/L Chloride (98-107) mmol/L Carbon Dioxide (21.0-32.0) mmol/L Anion Gap (5-15) mmol/L BUN (7-18) mg/dL Creatinine (0.51-1.17) mg/dL Est Cr Clr Drug Dosing mL/min Estimated GFR (MDRD) mL/min Glucose (70-140) mg/dL POC Glucose (70-140) mg/dL Lactic Acid 4.0 H (0.4-2.0) mmol/L Calcium (8.7-10.3) mg/dL Total Bilirubin (0.2-1.0) mg/dL AST (15-37) U/L ALT (14-63) U/L Alkaline Phosphatase (46-116) U/L Troponin I High Sens (0-51.000) pg/mL Total Protein (6.4-8.2) g/dL Albumin (3.40-5.00) g/dL Amylase (25-125) U/L Lipase (73-393) U/L Specimen Type Urine Color (YELLOW) Urine Appearance (CLEAR) Urine pH (5.0-9.0) Ur Specific [place] (1.005-1.030) Urine Protein (NEGATIVE) mg/dL Urine Glucose (UA) (NEGATIVE) mg/dL Urine Ketones (NEGATIVE) mg/dL Urine Occult Blood (NEGATIVE) Urine Nitrite (NEGATIVE) Urine Bilirubin (NEGATIVE) Urine Urobilinogen (0.2-1.0) E.U./dL Ur Leukocyte Esterase (NEGATIVE) Urine RBC (0-5) /HPF Urine WBC (0-5) /HPF Ur Epithelial Cells /LPF Urine Bacteria (NONE TO FEW) /HPF SARS CoV-2 RNA Rapid JASMYNE (NEGATIVE) [facility] Results Last 24 Hours: Microbiology 07/08/21 12:55 Occult Blood - Final Stool / Feces Med Orders - Current: Current Medications Sodium Chloride (Normal Saline) 50 mls @ 125 mls/hr IV [facility] Last Admin: 07/08/21 14:16 Dose: 125 mls/hr Documented by: Sodium Chloride (Normal Saline) 1,000 mls @ 100 mls/hr IV [facility] Last Admin: 07/09/21 03:09 Dose: 100 mls/hr Documented by: Piperacillin Sod/Tazobactam (Sod 2.25 gm/ Sodium Chloride) 50 mls @ 100 mls/hr IV Q6H [facility] Last Admin: 07/09/21 08:55 Dose: 100 mls/hr Documented by: Lidocaine (Lidocaine 5% 700 Mg Patch) 700 mg TOP DAILY [facility] Last Admin: 07/09/21 08:57 Dose: 700 mg Documented by: Miscellaneous Information (Remove Patch *Lidocaine*) 1 ea TRDERM Q24H [facility] Morphine Sulfate (Morphine 2 Mg/Ml Syringe) 2 mg IVPUSH Q2H PRN PRN Reason: Pain Last Admin: 07/09/21 11:27 Dose: 2 mg Documented by: Sodium Chloride (Sodium Chloride 0.9% 10 Ml Syringe) 10 ml FLUSH Q8HR PRN PRN Reason: keep vein open Last Admin: 07/09/21 05:58 Dose: 10 ml Documented by: Discontinued Medications Acetaminophen (Acetaminophen 325 Mg Tab) 650 mg PO Q4H PRN PRN Reason: Pain Last Admin: 07/08/21 22:14 Dose: 650 mg Documented by: Apixaban (Apixaban 5 Mg Tab) 5 mg PO BID TIFFANI Last Admin: 07/09/21 09:01 Dose: Not Given Documented by: Aspirin (Aspirin 81 Mg Tab.Ec) 81 mg PO Q48H TIFF[facility] Last Admin: 07/08/21 22:06 Dose: Not Given Documented by: Dextrose/Water (50% Dextrose In Water 50 Ml Syringe) 50 ml IVPUSH ONETIME ONE Stop: 07/08/21 15:01 Last Admin: 07/08/21 15:20 Dose: 50 ml Documented by: Hydralazine HCl (Hydralazine 10 Mg Tab) 10 mg PO Q8H PRN PRN Reason: SBP >160 Piperacillin Sod/Tazobactam (Sod 3.375 gm/ Sodium Chloride) 100 mls @ 200 mls/hr IV ONETIME ONE Stop: 07/08/21 14:14 Last Admin: 07/08/21 14:07 Dose: Not Given Documented by: Piperacillin Sod/Tazobactam (Sod 3.375 gm/ Sodium Chloride) 100 mls @ 200 ml s/hr IV ONETIME ONE Stop: 07/08/21 14:29 Last Admin: 07/08/21 14:13 Dose: 200 mls/hr Documented by: Sodium Chloride (Normal Saline) Confirm Administered Dose 50 mls @ as directed .ROUTE .STK-MED ONE Stop: 07/08/21 14:09 Last Admin: 07/08/21 14:14 Dose: Not Given Documented by: Sodium Chloride (Normal Saline) Confirm Administered Dose 1,000 mls @ as directed .ROUTE .STK-MED ONE Stop: 07/08/21 14:37 Last Admin: 07/08/21 15:43 Dose: Not Given Documented by: Sodium Chloride (Normal Saline) Confirm Administered Dose 1,000 mls @ as directed .ROUTE .STK-MED ONE Stop: 07/08/21 14:57 Last Admin: 07/08/21 15:44 Dose: Not Given Documented by: Sodium Chloride (Normal Saline) 1,000 mls @ 999 mls/hr IV .BOLUS ONE Stop: 07/08/21 16:02 Last Admin: 07/08/21 15:46 Dose: 200 mls/hr Documented by: Sodium Chloride (Normal Saline) 1,000 mls @ 999 mls/hr IV .BOLUS ONE Stop: 07/08/21 16:41 Last Admin: 07/08/21 15:46 Dose: 200 mls/hr Documented by: Piperacillin/Tazobactam/ (Dextrose 3.375 gm/ Premix) 50 mls @ 100 mls/hr IV Q6H [facility] Last Admin: 07/08/21 21:19 Dose: Not Given Documented by: Insulin Human Regular (Insulin Regular, Human 100 Units/Ml 10 Ml Vial) 15 unit IV ONETIME ONE Stop: 07/08/21 15:01 Last Admin: 07/08/21 15:36 Dose: 15 unit Documented by: Levetiracetam (Levetiracetam 500 Mg Tab) 500 mg PO BID [facility] Last Admin: 07/09/21 09:01 Dose: Not Given Documented by: Levothyroxine Sodium (Levothyroxine 50 Mcg Tab) 50 mcg [facility] Last Admin: 07/09/21 06:30 Dose: Not Given Documented by: Lidocaine/Prilocaine (Lidocaine/Prilocaine 2.5-2.5% Crm 5 Gm Tube) Confirm Administered Dose 5 gm .ROUTE .STK-MED ONE Stop: 07/08/21 14:34 Last Admin: 07/08/21 15:42 Dose: Not Given Documented by: Lidocaine/Prilocaine (Lidocaine/Prilocaine 2.5-2.5% Crm 5 Gm Tube) 5 gm TOP ONETIME ONE Stop: 07/08/21 15:42 Last Admin: 07/08/21 14:50 Dose: 5 gm Documented by: Olanzapine (Olanzapine 5 Mg Tab) 5 mg PO [facility] Last Admin: 07/08/21 22:05 Dose: Not Given Documented by: - Exam Quality Assessment: No: Supplemental Oxygen Urinary Catheter Total Time: 0Days 19Hours General: Alert, Cooperative, No Acute Distress HEENT: Pupils Equal, Other (dryness of oral mucosa) Neck: Supple Lungs: Clear to Auscultation, Decreased Breath Sounds. No: Crackles, Rhonchi, Wheezing Cardiovascular: Regular Rate, Regular Rhythm, No Murmurs GI/Abdominal Exam: Normal Bowel Sounds, Soft, Non-Tender, Other (liquid black stool in ostomy bag) (Female) Exam: Deferred Back Exam: Normal Inspection Extremities: Normal Inspection, Non-Tender, Pedal Edema (Non pitting edema to bilateral lower extremities) Skin: Other (pallor) Neurological: Other (Significant weakness, voice soft and weak ) Psy/Mental Status: Alert - Patient Data Lab Results Last 24 hrs: Laboratory Results - last 24 hr 07/08/21 07/08/21 07/08/21 Range/Units 12:55 12:55 12:55 WBC 28.75 H (5.00-10.00) 10^3/uL RBC 3.35 L (3.80-5.50) 10^6/uL Hgb 10.7 L (12.0-16.0) g/dL Hct 33.4 L (37.0-47.0) % MCV 99.7 H (82.0-92.0) fL MCH 31.9 H (27.0-31.0) pg MCHC 32.0 (32.0-36.0) g/dL RDW 13.7 (11.5-14.5) % Plt Count 373 (150-400) 10^3/uL MPV 10.8 H (7.4-10.4) fL Immature Gran % (Auto) 1.3 (0.0-5.0) % Neut % (Auto) 90.1 H (50.0-70.0) % Lymph % (Auto) 4.2 L (20.0-40.0) % Parmer % (Auto) 4.4 (2.0-8.0) % Eos % (Auto) 0.0 L (1.0-3.0) % Baso % (Auto) 0.0 (0.0-1.0) % Neut # (Auto) 25.90 H (2.50-7.00) 10^3/uL Lymph # (Auto) 1.21 (1.00-4.00) 10^3/uL Parmer # (Auto) 1.26 H (0.10-0.80) 10^3/uL Eos # (Auto) 0.00 L (0.10-0.30) 10^3/uL Baso # (Auto) 0.01 (0.00-0.10) 10^3/uL Immature Gran # (Auto) 0.37 (0.00-0.50) 10^3/uL Macrocytosis 1+ slight Sodium 127 L (136-145) mmol/L Potassium 8.2 H* (3.5-5.1) mmol/L Chloride 97 L (98-107) mmol/L Carbon Dioxide 13.9 L (21.0-32.0) mmol/L Anion Gap 24.3 H (5-15) mmol/L BUN 165 H* (7-18) mg/dL Creatinine 3.81 H (0.51-1.17) mg/dL Est Cr Clr Drug Dosing 10.68 mL/min Estimated GFR (MDRD) 11 mL/min Glucose 244 H (70-140) mg/dL POC Glucose (70-140) mg/dL Lactic Acid 4.9 H (0.4-2.0) mmol/L Calcium 10.3 (8.7-10.3) mg/dL Total Bilirubin 0.3 (0.2-1.0) mg/dL AST 13 L (15-37) U/L ALT 13 L (14-63) U/L Alkaline Phosphatase 93 (46-116) U/L Troponin I High Sens 11.200 (0-51.000) pg/mL Total Protein 8.3 H (6.4-8.2) g/dL Albumin 2.26 L (3.40-5.00) g/dL Amylase 70 (25-125) U/L Lipase 499 H (73-393) U/L Specimen Type Urine Color (YELLOW) Urine Appearance (CLEAR) Urine pH (5.0-9.0) Ur Specific [place] (1.005-1.030) Urine Protein (NEGATIVE) mg/dL Urine Glucose (UA) (NEGATIVE) mg/dL Urine Ketones (NEGATIVE) mg/dL Urine Occult Blood (NEGATIVE) Urine Nitrite (NEGATIVE) Urine Bilirubin (NEGATIVE) Urine Urobilinogen (0.2-1.0) E.U./dL Ur Leukocyte Esterase (NEGATIVE) Urine RBC (0-5) /HPF Urine WBC (0-5) /HPF Ur Epithelial Cells /LPF Urine Bacteria (NONE TO FEW) /HPF SARS CoV-2 RNA Rapid JASMYNE (NEGATIVE) 07/08/21 07/08/21 07/08/21 Range/Units 13:30 16:00 16:17 WBC (5.00-10.00) 10^3/uL RBC (3.80-5.50) 10^6/uL Hgb (12.0-16.0) g/dL Hct (37.0-47.0) % MCV (82.0-92.0) fL MCH (27.0-31.0) pg MCHC (32.0-36.0) g/dL RDW (11.5-14.5) % Plt Count (150-400) 10^3/uL MPV (7.4-10.4) fL Immature Gran % (Auto) (0.0-5.0) % Neut % (Auto) (50.0-70.0) % Lymph % (Auto) (20.0-40.0) % Parmer % (Auto) (2.0-8.0) % Eos % (Auto) (1.0-3.0) % Baso % (Auto) (0.0-1.0) % Neut # (Auto) (2.50-7.00) 10^3/uL Lymph # (Auto) (1.00-4.00) 10^3/uL Parmer # (Auto) (0.10-0.80) 10^3/uL Eos # (Auto) (0.10-0.30) 10^3/uL Baso # (Auto) (0.00-0.10) 10^3/uL Immature Gran # (Auto) (0.00-0.50) 10^3/uL Macrocytosis Sodium (136-145) mmol/L Potassium (3.5-5.1) mmol/L Chloride (98-107) mmol/L Carbon Dioxide (21.0-32.0) mmol/L Anion Gap (5-15) mmol/L BUN (7-18) mg/dL Creatinine (0.51-1.17) mg/dL Est Cr Clr Drug Dosing mL/min Estimated GFR (MDRD) mL/min Glucose (70-140) mg/dL POC Glucose 219 H (70-140) mg/dL Lactic Acid (0.4-2.0) mmol/L Calcium (8.7-10.3) mg/dL Total Bilirubin (0.2-1.0) mg/dL AST (15-37) U/L ALT (14-63) U/L Alkaline Phosphatase (46-116) U/L Troponin I High Sens (0-51.000) pg/mL Total Protein (6.4-8.2) g/dL Albumin (3.40-5.00) g/dL Amylase (25-125) U/L Lipase (73-393) U/L Specimen Type Urincath Urine Color Brown H (YELLOW) Urine Appearance Cloudy H (CLEAR) Urine pH 5.0 (5.0-9.0) Ur Specific [place] >= 1.030 (1.005-1.030) Urine Protein 100 H (NEGATIVE) mg/dL Urine Glucose (UA) Negative (NEGATIVE) mg/dL Urine Ketones 15 H (NEGATIVE) mg/dL Urine Occult Blood Large H (NEGATIVE) Urine Nitrite Negative (NEGATIVE) Urine Bilirubin Negative (NEGATIVE) Urine Urobilinogen 0.2 (0.2-1.0) E.U./dL Ur Leukocyte Esterase Large H (NEGATIVE) Urine RBC Packed (0-5) /HPF Urine WBC Packed (0-5) /HPF Ur Epithelial Cells Moderate H /LPF Urine Bacteria Many H (NONE TO FEW) /HPF SARS CoV-2 RNA Rapid JASMYNE Negative (NEGATIVE) 07/08/21 07/08/21 Range/Units 17:50 19:40 WBC (5.00-10.00) 10^3/uL RBC (3.80-5.50) 10^6/uL Hgb (12.0-16.0) g/dL Hct (37.0-47.0) % MCV (82.0-92.0) fL MCH (27.0-31.0) pg MCHC (32.0-36.0) g/dL RDW (11.5-14.5) % Plt Count (150-400) 10^3/uL MPV (7.4-10.4) fL Immature Gran % (Auto) (0.0-5.0) % Neut % (Auto) (50.0-70.0) % Lymph % (Auto) (20.0-40.0) % Parmer % (Auto) (2.0-8.0) % Eos % (Auto) (1.0-3.0) % Baso % (Auto) (0.0-1.0) % Neut # (Auto) (2.50-7.00) 10^3/uL Lymph # (Auto) (1.00-4.00) 10^3/uL Parmer # (Auto) (0.10-0.80) 10^3/uL Eos # (Auto) (0.10-0.30) 10^3/uL Baso # (Auto) (0.00-0.10) 10^3/uL Immature Gran # (Auto) (0.00-0.50) 10^3/uL Macrocytosis Sodium (136-145) mmol/L Potassium 6.2 H D (3.5-5.1) mmol/L Chloride (98-107) mmol/L Carbon Dioxide (21.0-32.0) mmol/L Anion Gap (5-15) mmol/L BUN (7-18) mg/dL Creatinine (0.51-1.17) mg/dL Est Cr Clr Drug Dosing mL/min Estimated GFR (MDRD) mL/min Glucose (70-140) mg/dL POC Glucose (70-140) mg/dL Lactic Acid 4.0 H (0.4-2.0) mmol/L Calcium (8.7-10.3) mg/dL Total Bilirubin (0.2-1.0) mg/dL AST (15-37) U/L ALT (14-63) U/L Alkaline Phosphatase (46-116) U/L Troponin I High Sens (0-51.000) pg/mL Total Protein (6.4-8.2) g/dL Albumin (3.40-5.00) g/dL Amylase (25-125) U/L Lipase (73-393) U/L Specimen Type Urine Color (YELLOW) Urine Appearance (CLEAR) Urine pH (5.0-9.0) Ur Specific [place] (1.005-1.030) Urine Protein (NEGATIVE) mg/dL Urine Glucose (UA) (NEGATIVE) mg/dL Urine Ketones (NEGATIVE) mg/dL Urine Occult Blood (NEGATIVE) Urine Nitrite (NEGATIVE) Urine Bilirubin (NEGATIVE) Urine Urobilinogen (0.2-1.0) E.U./dL Ur Leukocyte Esterase (NEGATIVE) Urine RBC (0-5) /HPF Urine WBC (0-5) /HPF Ur Epithelial Cells /LPF Urine Bacteria (NONE TO FEW) /HPF SARS CoV-2 RNA Rapid JASMYNE (NEGATIVE) Result Diagrams: 07/08/21 12:55 07/08/21 19:40 [facility] Results Last 24 hrs: Microbiology 07/08/21 12:55 Occult Blood - Final Stool / Feces Sepsis Event Note - Evaluation Sepsis Screening Result: Severe Sepsis Risk - Focused Exam Vital Signs: Vital Signs Temp Pulse Resp BP Pulse Ox 07/09/21 06:33 96.5 F L 106 H 18 122/59 L 97
[2021-07-09] MEDS: Ondansetron 4 MG/2 ML SDV IVPUSH PRN ×2 (11:57→23:56)
--- NOTE | 2021-07-09 20:31 | PCM.HP.2 ---
H&P History of Present Illness - General Date of Service: 07/09/21 Admit Problem/Dx: Admission Diagnosis/Problem Admission Diagnosis/Problem Urosepsis Abdomen Pain Score (Numeric/FACES): 4 - Related Data Allergies/Adverse Reactions: Allergies Allergy/AdvReac Type Severity Reaction Status Date / Time bupivacaine [From Marcaine] Allergy Other Verified 07/08/21 13:09 celecoxib [From Celebrex] Allergy Other Verified 07/08/21 13:01 ciprofloxacin Allergy Other Verified 07/08/21 13:01 clindamycin Allergy Other Verified 07/08/21 13:02 codeine Allergy Other Verified 07/08/21 13:07 dicyclomine Allergy Other Verified 07/08/21 13:08 doxycycline Allergy Other Verified 07/08/21 13:08 fentanyl Allergy Other Verified 07/08/21 13:09 hydrocodone Allergy Other Verified 07/08/21 13:09 hydromorphone [From Dilaudid] Allergy Other Verified 07/08/21 13:08 meperidine [From Demerol] Allergy Other Verified 07/08/21 13:07 morphine Allergy Other Verified 07/08/21 13:10 nitrofurantoin Allergy Other Verified 07/08/21 13:09 [From Macrobid] NSAIDS (Non-Steroidal Allergy Other Verified 07/08/21 13:10 Anti-Inflamma prednisone Allergy Other Verified 07/08/21 13:10 propoxyphene Allergy Other Verified 07/08/21 13:11 salicylates Allergy Other Verified 07/08/21 13:11 Sulfa (Sulfonamide Allergy Other Verified 07/08/21 13:11 Antibiotics) Home Medications: Home Meds Acetaminophen 650 mg PO Q12H PRN 07/08/21 [History] Acetaminophen [Mapap] 650 mg PO BID 07/08/21 [History] Apixaban [Eliquis] 5 mg PO BID 07/08/21 [History] Aspirin 81 mg PO Q48H 07/08/21 [History] Capsaicin 1 applic TOP ASDIRECTED PRN 07/08/21 [History] Cyanocobalamin (Vitamin B-12) [B-12] 1,000 mg PO DAILY 07/08/21 [History] Levothyroxine [Synthroid] 50 mcg PO ACBREAKFAST 07/08/21 [History] Lidocaine 5% [Lidoderm 5%] 1 patch TOP DAILY 07/08/21 [History] Menthol/Zinc Oxide [Calmoseptine] 1 applic TOP ASDIRECTED PRN 07/08/21 [History] OLANZapine [Olanzapine] 5 mg PO BEDTIME 07/08/21 [History] hydrALAZINE [Apresoline] 10 mg PO Q8H PRN 07/08/21 [History] levETIRAcetam [Keppra] 500 mg PO BID 07/08/21 [History] Past Medical History HEENT History: Reports: Allergic Rhinitis Cardiovascular History: Reports: Blood Clots/VTE/DVT, Heart Failure, Hypertension Gastrointestinal History: Reports: Other (See Below) Other Gastrointestinal History: Vascular disorder of interstine, dysphagia Genitourinary History: Reports: Chronic Renal Insuffiency, Retention, Urinary, Other (See Below) Other Genitourinary History: Neuromuscular dysfunction of bladder, [employer] History: Reports: Musculoskeletal History: Reports: Other (See Below) Other Musculoskeletal History: Hemiplegia and hemiparesis s/p CVA Neurological History: Reports: CVA, Seizure, Speech Problems Psychiatric History: Reports: Anxiety, Dementia Endocrine/Metabolic History: Reports: Hypothyroidism Hematologic History: Reports: Anemia, B12 Deficiency, Other (See Below) Other Hematologic History: pancytopenia Oncologic (Cancer) History: Reports: Uterine - Past Surgical History Cardiovascular Surgical History: Reports: None GI Surgical History: Reports: Colostomy, Small Bowel Female Surgical History: Reports: None Musculoskeletal Surgical History: Reports: None Social & Family History - Family History Family Medical History: No Pertinent Family History H&P Review of Systems - Review of Systems: Review Of Systems: See Below General: Reports: Weakness, Fatigue. Denies: Fever, Chills HEENT: Reports: No Symptoms Pulmonary: Reports: No Symptoms Cardiovascular: Reports: No Symptoms Gastrointestinal: Reports: Black Stool, Other (ostomy). Denies: Abdominal Pain Genitourinary: Reports: No Symptoms Musculoskeletal: Reports: Back Pain Skin: Reports: Pallor Psychiatric: Reports: Depression Neurological: Reports: Weakness Hematologic/Lymphatic: Reports: No Symptoms Immunologic: Reports: No Symptoms Exam - Exam Exam: See Below - Vital Signs Vital Signs: Last Vital Signs Temp 96.5 F L 07/09/21 06:33 Pulse 106 H 07/09/21 06:33 Resp 18 07/09/21 06:33 BP 122/59 L 07/09/21 06:33 Pulse Ox 97 07/09/21 06:33 Weight: 134 lb 8 oz - Exam Quality Assessment: Urinary Catheter. No: Supplemental Oxygen General: Alert, Cooperative, Lethargic HEENT: No: Mucosa Moist & [place] Neck: Supple Lungs: Clear to Auscultation, Decreased Breath Sounds Cardiovascular: Regular Rate, Regular Rhythm. No: Systolic Murmur GI/Abdominal Exam: Normal Bowel Sounds, Soft, Non-Tender, Other (Ostomy with black liquid stool noted in appliance) (Female) Exam: Deferred Rectal (Female) Exam: Deferred Back Exam: Normal Inspection Extremities: Normal Inspection, Non-Tender, Pedal Edema (non-pitting bilateral lower extremities) Peripheral Pulses: 2+: Dorsalis Pedis (L), Dorsalis Pedis (R) Skin: Warm, Dry Neurological: Normal Speech (very soft spoken) Neuro Extensive - Mental Status: Alert, Opens Eyes to Commands Psychiatric: Alert, Depressed - Patient Data Result Diagrams: 07/08/21 12:55 07/08/21 19:40 Zacarias Results Last 24 hrs: Microbiology 07/08/21 14:00 Aerobic Blood Culture - Preliminary Blood - Venous NO GROWTH AFTER 1 DAY Anaerobic Blood Culture - Preliminary NO GROWTH AFTER 1 DAY Sepsis Event Note - Evaluation Sepsis Screening Result: Severe Sepsis Risk Problem List Initiated/Reviewed/Updated: Yes Orders Last 24hrs: Active Orders 24 hr Category Date Time Status Activity as Tolerated [RC] .Routine Care 07/08/21 21:00 Active CIWAA Assessment [RC] Q4H Care 07/09/21 19:46 Active Vital Signs [RC] .PRN Care 07/08/21 20:59 Active Regular Diet [DIET] Diet 07/09/21 Breakfast Active Lidocaine 5% [Lidoderm 5%] Med 07/09/21 09:00 Active 700 mg TOP DAILY Morphine Med 07/08/21 22:51 Active 2 mg IVPUSH Q2H PRN Ondansetron [Zofran] Med 07/09/21 11:42 Active 4 mg IVPUSH Q6H PRN Remove Patch Med 07/09/21 21:00 Active 1 ea TRDERM Q24H Comfort Measures [OM.PC] Routine Oth 07/09/21 13:49 Ordered Code Status [Resuscitation Status] Stat Resus Stat 07/08/21 20:55 Ordered Medication Orders Lidocaine (Lidocaine 5% 700 Mg Patch) 700 mg TOP DAILY [facility] Last Admin: 07/09/21 08:57 Dose: 700 mg Documented by: OC Miscellaneous Information (Remove Patch *Lidocaine*) 1 ea TRDERM Q24H [facility] Last Admin: 07/09/21 20:14 Dose: 1 ea Documented by: JOHN Morphine Sulfate (Morphine 2 Mg/Ml Syringe) 2 mg IVPUSH Q2H PRN PRN Reason: Pain Last Admin: 07/09/21 20:12 Dose: 2 mg Documented by: Admin: 07/09/21 18:15 Dose: 2 mg Documented by: Admin: 07/09/21 14:21 Dose: 2 mg Documented by: Admin: 07/09/21 11:27 Dose: 2 mg Documented by: Admin: 07/09/21 05:58 Dose: 2 mg Documented by: BEAU Ondansetron HCl (Ondansetron 4 Mg/2 Ml Sdv) 4 mg IVPUSH Q6H PRN PRN Reason: Nausea/Vomiting Last Admin: 07/09/21 11:57 Dose: 4 mg Documented by: OC Sodium Chloride (Sodium Chloride 0.9% 10 Ml Syringe) 10 ml FLUSH Q8HR PRN PRN Reason: keep vein open Last Admin: 07/09/21 05:58 Dose: 10 ml Documented by: BEAU Assessment/Plan Comment:: HPI summary: [facility] nursing contacted myself regarding wishes to tranport patient to [facility] ER for evaluation of possible GI bleed in addition to pallor and lethargy. Patient arrived to ER by EMS. is morning while changing her ostomy bag they noted tarry black stool suspicious for GI bleed. She was hospitalized at [facility] in [place] in May for what appears to be urosepsis issues and was transferred to [facility] in [place] on 12 June. She has bee n seen and had lab work done since then by [facility] provider Fatmata Fitzgerald through the clinic system. She presents today somewhat lethargic able to answer yes and no to questions but has a very weak voice and very limited mobility. She states she has some abdominal discomfort which is lower abdomen pelvis and otherwise is somewhat vague to any other complaint. ED course: EKG NSR 103, LBBB. 96.6, HR 104, 128/77, RR28, 97% RA. WBC 28.75 (90.1% neutrophils), Hgb 10.7, Plt 373. Na 127, K 8.2, CO2 13.9, Anion gap 24.3, BUN 165, Creatinine 3.81, GFR 11 LA 4.9, Lipase 499. UA: Brown urine with many bacteria, "packed" RBC, WBC Occult stool: +ve Patient started on zosyn in ER 15 units insulin given for hyperkalemia - repeat 6.2 Family initially indicated patient was FULL CODE, ER provider unable to transfer patient to higher level of care due to lack of bed availability. After further discussion, son decided to change code status to DNR/DNI and proceed with IV fluids, zosyn for urosepsis, renal failure. Patient admitted to inpatient status per Acacia Traylor PA-C [facility] on-call provider Hospital course: 07/09/21: Patient very soft spoken, states "I don't feel good." Patient quite weak, lethargic and rather pale. Holding all oral medications as patient had difficulty swallowing last night. Oliguria noted, 100ml in quigley bag after 8 hours. Liquid stool in ostomy appliance, black in color. Patient changed to DNR/DNI in ER after discussion with family last evening, patient then transitioned to DNR/DNI comfort care last night after discussion with family per Acacia Traylor PA-C. Son indicated that he wanted to continue IV fluids and antibiotics, though he did not want any further labs to be obtained. Hospitalization problems and plan: # Comfort care status - Continue morphine sulfate 2mg Q4H PRN pain - Continue zofran 4mg IV Q6H nausea - Consider adding ativan, robinul # Urosepsis - Zosyn 3.375mg IV Q6H - stopped per son's request for comfort care only # Acute renal failure # Hyperkalemia # Dehydration - IV fluids stopped per son's request for comfort care only - No further labs to be obtained. 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 # PPX: None. # Code status: DNR/DNI Comfort care # Emergency contact: Rg Stafford. Updated per myself after rounds this morning. Son indicates that he would like to de-escalate patient's care further and stop IV fluids and antibiotics as he feels that this may delay the inevitable. He stated that he felt his mother would no longer have any quality of life and that he does not want her to suffer. # Disposition: Will maintain inpatient status in hospital today with IV morphine, IV zofran and will start IV ativan if patient becomes restless or anxious. Possible discharge back to [facility] is is not deemed to be rather imminent for ongoing comfort care.
[2021-07-10] MEDS: Morphine 2 MG/ML SYRINGE IVPUSH PRN ×4 (02:09→11:45)
[2021-07-10] MEDS: Sodium Chloride 0.9% 10 ML Syringe FLUSH PRN ×2 (02:11→08:05)
[2021-07-10] MEDS: Lidocaine 5% 700 MG Patch TOP SCH (09:55)
--- NOTE | 2021-07-10 11:18 | PCM.DCSUM1 ---
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 Schulz is a 75yoF with a history notable for recent prior hospitalization for sepsis secondary to UTI who was transported to the [facility] ED on the day of admission for evaluation of dark stools and weakness. She was noted to be quite lethargic. Workup revealed WBC 28.75 with 90% neutrophils, lactic acid 4.9, Cr 3.81, and UA showing brown colored urine with many bacteria and packed RBCs and WBCs. Family initially indicated patient was FULL CODE and ER provider unable to transfer patient to higher level of care due to lack of bed availability, so she as admitted locally. After further discussion, son decided to change code status to DNR/DNI and proceed with IV fluids and antibiotics only without other aggressive cares. She was started on Zosyn for presumed urinary source. Despite aggressive hydration, she was oliguric and goals of care were discussed with the patient and family, for which they desired transition to comfort measures only. She was generally stable without evidence of imminent decline, so she was deemed ready to discharge back to SNF. Discharge and follow-up recommendations: - Discharge back to [facility] - Referral to hospice for sepsis - Medication changes at discharge: - Discontinue all prior medications - Morphine and ondansetron for pain and nausea control - Follow-up on next group home rounds - Discharge Data Discharge Date: 07/10/21 Discharge Disposition: DC/Tfer to SNF 03 Condition: Poor - Referral to Home Health Primary Care Physician: Joanna Israel MD - Patient Instructions Diet: Regular Diet as Tolerated Activity: As Tolerated - Discharge Plan *PRESCRIPTION DRUG MONITORING PROGRAM REVIEWED*: Not Applicable *COPY OF PRESCRIPTION DRUG MONITORING REPORT IN PATIENT JUANJOSE: Not Applicable Prescriptions/Med Rec: Morphine Sulfate/PF [Morphine 1 mg/2 ml Syringe] 1 mg IV Q2H PRN #10 ml PRN Reason: pain, dyspnea Ondansetron [Zofran] 4 mg IVPUSH Q6H PRN #5 vial PRN Reason: Nausea/Vomiting Home Medications: Home Meds Lidocaine 5% [Lidoderm 5%] 1 patch TOP DAILY 07/08/21 [History] Morphine Sulfate/PF [Morphine 1 mg/2 ml Syringe] 1 mg IV Q2H PRN #10 ml 07/10/21 [Rx] Ondansetron [Zofran] 4 mg IVPUSH Q6H PRN #5 vial 07/10/21 [Rx] Referrals: Fatmata Fitzgerald [employer]ER [Nurse Practitioner] - (next group home rounds) - Discharge Summary/Plan Comment DC Time >30 min.: Yes Total # of Minutes for Discharge Time: 35 - General Info Subjective Update: Minimal verbal interaction. - Patient Data Vitals - Most Recent: Last Vital Signs Temp 35.8 C L 07/09/21 06:33 Pulse 106 H 07/09/21 06:33 Resp 18 07/09/21 06:33 BP 122/59 L 07/09/21 06:33 Pulse Ox 97 07/09/21 06:33 Weight - Most Recent: 61.008 kg I&O - Last 24 hours: Intake & Output 07/09/21 07/10/21 07/10/21 22:59 06:59 14:59 Intake Total 0 0 Output Total 100 950 Balance -100 -950 ROCKY Results - Last 24 hrs: Microbiology 07/08/21 13:30 Urine Culture - Final Urine, Catheterized 07/08/21 14:00 Aerobic Blood Culture - Preliminary Blood - Venous NO GROWTH AFTER 1 DAY Anaerobic Blood Culture - Preliminary NO GROWTH AFTER 1 DAY Med Orders - Current: Current Medications Lidocaine (Lidocaine 5% 700 Mg Patch) 700 mg TOP DAILY [facility] Last Admin: 07/10/21 09:55 Dose: 700 mg Documented by: Miscellaneous Information (Remove Patch *Lidocaine*) 1 ea TRDERM Q24H [facility] Last Admin: 07/09/21 20:14 Dose: 1 ea Documented by: Morphine Sulfate (Morphine 2 Mg/Ml Syringe) 2 mg IVPUSH Q2H PRN PRN Reason: Pain Last Admin: 07/10/21 08:01 Dose: 2 mg Documented by: Ondansetron HCl (Ondansetron 4 Mg/2 Ml Sdv) 4 mg IVPUSH Q6H PRN PRN Reason: Nausea/Vomiting Last Admin: 07/09/21 23:56 Dose: 4 mg Documented by: Sodium Chloride (Sodium Chloride 0.9% 10 Ml Syringe) 10 ml FLUSH Q8HR PRN PRN Reason: keep vein open Last Admin: 07/10/21 08:05 Dose: 10 ml Documented by: Discontinued Medications Acetaminophen (Acetaminophen 325 Mg Tab) 650 mg PO Q4H PRN PRN Reason: Pain Last Admin: 07/08/21 22:14 Dose: 650 mg Documented by: Apixaban (Apixaban 5 Mg Tab) 5 mg PO BID [facility] Last Admin: 07/09/21 09:01 Dose: Not Given Documented by: Aspirin (Aspirin 81 Mg Tab.Ec) 81 mg PO Q48H [facility] Last Admin: 07/08/21 22:06 Dose: Not Given Documented by: Dextrose/Water (50% Dextrose In Water 50 Ml Syringe) 50 ml IVPUSH ONETIME ONE Stop: 07/08/21 15:01 Last Admin: 07/08/21 15:20 Dose: 50 ml Documented by: Hydralazine HCl (Hydralazine 10 Mg Tab) 10 mg PO Q8H PRN PRN Reason: SBP >160 Piperacillin Sod/Tazobactam (Sod 3.375 gm/ Sodium Chloride) 100 mls @ 200 mls/hr IV ONETIME ONE Stop: 07/08/21 14:14 Last Admin: 07/08/21 14:07 Dose: Not Given Documented by: Piperacillin Sod/Tazobactam (Sod 3.375 gm/ Sodium Chloride) 100 mls @ 200 mls/hr IV ONETIME ONE Stop: 07/08/21 14:29 Last Admin: 07/08/21 14:13 Dose: 200 mls/hr Documented by: Sodium Chloride (Normal Saline) 50 mls @ 125 mls/hr IV ASDIRECTED [facility] Last Admin: 07/08/21 14:16 Dose: 125 mls/hr Documented by: Sodium Chloride (Normal Saline) Confirm Administered Dose 50 mls @ as directed .ROUTE .STK-MED ONE Stop: 07/08/21 14:09 Last Admin: 07/08/21 14:14 Dose: Not Given Documented by: Sodium Chloride (Normal Saline) Confirm Administered Dose 1,000 mls @ as directed .ROUTE .STK-MED ONE Stop: 07/08/21 14:37 Last Admin: 07/08/21 15:43 Dose: Not Given Documented by: Sodium Chloride (Normal Saline) Confirm Administered Dose 1,000 mls @ as directe d .ROUTE .STK-MED ONE Stop: 07/08/21 14:57 Last Admin: 07/08/21 15:44 Dose: Not Given Documented by: Sodium Chloride (Normal Saline) 1,000 mls @ 999 mls/hr IV .BOLUS ONE Stop: 07/08/21 16:02 Last Admin: 07/08/21 15:46 Dose: 200 mls/hr Documented by: Sodium Chloride (Normal Saline) 1,000 mls @ 999 mls/hr IV .BOLUS ONE Stop: 07/08/21 16:41 Last Admin: 07/08/21 15:46 Dose: 200 mls/hr Documented by: Sodium Chloride (Normal Saline) 1,000 mls @ 100 mls/hr IV ASDIRECTED [facility] Last Admin: 07/09/21 03:09 Dose: 100 mls/hr Documented by: Piperacillin/Tazobactam/ (Dextrose 3.375 gm/ Premix) 50 mls @ 100 mls/hr IV Q6H [facility] Last Admin: 07/08/21 21:19 Dose: Not Given Documented by: Piperacillin Sod/Tazobactam (Sod 2.25 gm/ Sodium Chloride) 50 mls @ 100 mls/hr IV Q6H [facility] Last Admin: 07/09/21 08:55 Dose: 100 mls/hr Documented by: Insulin Human Regular (Insulin Regular, Human 100 Units/Ml 10 Ml Vial) 15 unit IV ONETIME ONE Stop: 07/08/21 15:01 Last Admin: 07/08/21 15:36 Dose: 15 unit Documented by: Levetiracetam (Levetiracetam 500 Mg Tab) 500 mg PO BID [facility] Last Admin: 07/09/21 09:01 Dose: Not Given Documented by: Levothyroxine Sodium (Levothyroxine 50 Mcg Tab) 50 mcg PO ACBREAKFAST [facility] Last Admin: 07/09/21 06:30 Dose: Not Given Documented by: Lidocaine/Prilocaine (Lidocaine/Prilocaine 2.5-2.5% Crm 5 Gm Tube) Confirm Administered Dose 5 gm .ROUTE .STK-MED ONE Stop: 07/08/21 14:34 Last Admin: 07/08/21 15:42 Dose: Not Given Documented by: Lidocaine/Prilocaine (Lidocaine/Prilocaine 2.5-2.5% Crm 5 Gm Tube) 5 gm TOP ONETIME ONE Stop: 07/08/21 15:42 Last Admin: 07/08/21 14:50 Dose: 5 gm Documented by: Olanzapine (Olanzapine 5 Mg Tab) 5 mg PO BEDTIME [facility] Last Admin: 07/08/21 22:05 Dose: Not Given Documented by: - Exam Physical Findings Comments:: GENERAL: Elderly female lying in hospital bed. Appears comfortable and in no obvious pain. HEENT: Normocephalic, atraumatic. Conjunctiva clear. Nares patent without discharge. Mucous membranes mildly dry. NECK: Supple, no masses. CV: Regular rate and rhythm, no murmurs, rubs, or gallops. 2+ radial pulses. PULMONARY: Mild tachypnea. Crackles in bases bilaterally. ABDOMEN: Positive bowel sounds, soft, nontender, nondistended. EXTREMITIES: No edema, cyanosis, or clubbing. MUSCULOSKELETAL: Moves all extremities well. NEUROLOGICAL: No obvious deficits. DERMATOLOGIC: Pale. No rashes or suspicious lesions in exposed areas. PSYCHIATRIC: Drowsy, minimally verbally interactive.
== END 2021-07-10 11:50 | DRG 872 ==
LOC: KA.ED 12:23 → KA.MS 17:09
PROVIDERS: ADMIT Physician Assistant Medical; ATTEND Physician Assistant Medical
DX: A41.9 Sepsis, unspecified organism (principal); N39.0 Urinary tract infection, site not specified; N17.9 Acute kidney failure, unspecified; I50.22 Chronic systolic (congestive) heart failure; I13.0 Hypertensive heart and chronic kidney disease with heart failure and stage 1 through stage 4 chronic kidney disease, or unspecified chronic kidney disease; G40.209 Localization-related (focal) (partial) symptomatic epilepsy and epileptic syndromes with complex partial seizures, not intractable, without status epilepticus; I69.959 Hemiplegia and hemiparesis following unspecified cerebrovascular disease affecting unspecified side; N18.4 Chronic kidney disease, stage 4 (severe); E86.0 Dehydration; I50.9 Heart failure, unspecified; G40.909 Epilepsy, unspecified, not intractable, without status epilepticus; G89.4 Chronic pain syndrome; Z51.5 Encounter for palliative care; Z86.73 Personal history of transient ischemic attack (TIA), and cerebral infarction without residual deficits; E87.5 Hyperkalemia; Z20.822 Contact with and (suspected) exposure to COVID-19; D64.9 Anemia, unspecified; M54.2 Cervicalgia; D63.1 Anemia in chronic kidney disease; E53.8 Deficiency of other specified B group vitamins; R65.20 Severe sepsis without septic shock; E03.9 Hypothyroidism, unspecified; F41.9 Anxiety disorder, unspecified; J30.9 Allergic rhinitis, unspecified; Z66 Do not resuscitate; Z88.1 Allergy status to other antibiotic agents; Z86.718 Personal history of other venous thrombosis and embolism; Z79.01 Long term (current) use of anticoagulants; Z88.5 Allergy status to narcotic agent; Z88.8 Allergy status to other drugs, medicaments and biological substances; Z88.2 Allergy status to sulfonamides; Z79.82 Long term (current) use of aspirin; Z79.890 Hormone replacement therapy; Z79.899 Other long term (current) drug therapy; Z88.6 Allergy status to analgesic agent; Z88.4 Allergy status to anesthetic agent
CPT/HCPCS: 36415; 51702; 71045; 74176; 80053; 81001; 82150; 82270; 82947; 83605; 83690; 84132; 84484; 85025; 87040; 87086; 87088; 87186; 93005; 96365; 96375; 99284; 99285-25; A9270-GY; J2270; J2405; J2543; J7030; U0002